=== PATIENT | male | born 1990 | race Caucasian/White ===

== ENCOUNTER 2016-11-03 11:34 | Emergency (ER) | payer SELFPAY ==
[2016-11-03] MEDS ORDERED: Ketorolac Tromethamine 60 MG/2 ML VIAL ONE (11:58)
[2016-11-03] MEDS ORDERED: Ondansetron ODT 4 MG TAB ONE (11:58)
[2016-11-03] MEDS ORDERED: diphenhydrAMINE HCl 25 MG CAP ONE (11:58)
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
== END 2016-11-03 12:35 | disposition home or self-care (01) ==
LOC: BURERS 11:34
DX: J11.1 Influenza due to unidentified influenza virus with other respiratory manifestations (principal); F17.210 Nicotine dependence, cigarettes, uncomplicated
CPT/HCPCS: 96372; J1885; Q0162

== ENCOUNTER → 2017-08-25 | Emergency (ER) | payer OTHER, SELFPAY ==
[~2017-08-25] MED LIST: Sodium Bicarbonate 2.4 MEQ/5 ML ONE; cefTRIAXone\\ROCEPHIN 500 MG VIAL ONE
--- NOTE | 2017-08-25 20:25 | RAD ---
RIGHT SECOND DIGIT THREE VIEWS 08/25/17 No fracture or joint abnormality was seen. There may be a tiny opaque foreign body in the soft tissue s on the volar aspect of the PIP joint medially. As best as I can tell, the patient's laceration is o n the dorsum of the finger so this is probably not new. IMPRESSION: No acute bony findings. POS: HOME
== END ==
LOC: BURERS 09:40
DX: S61.210A Laceration without foreign body of right index finger without damage to nail, initial encounter (principal); W23.0XXA Caught, crushed, jammed, or pinched between moving objects, initial encounter; Y92.69 Other specified industrial and construction area as the place of occurrence of the external cause; Y99.8 Other external cause status
CPT/HCPCS: 12031; J0696